=== PATIENT | male | born 1945 | race Caucasian/White ===

== ENCOUNTER 2017-07-03 13:45 | Emergency (ER) | payer OTHER ==
[~2017-07-03] VITALS: Ht 170.2 cm; Wt 104.3 kg
[~2017-07-03 13:45] MED LIST: ASPIRIN325; CENTRUM SILVER1 EAC2; CHOLEST OFF PL450 MG; CO Q-10100 MG; FISH OIL 1,001000 M2 PO; GLUCOSAMINE HC500 MG; LISINOPRIL20 MG PO; NORCO 5-325 TA1 EACH PO; VITAMIN D3400 UNIT
[2017-07-03] MEDS ORDERED: TOPROL XL25 MG PO (13:54)
[2017-07-03 14:31] LABS: HEMATOCRIT 43.8 % (42.0-52.0); MCH 29.2 pg (26.0-34.0); MCHC 34.2 g/dL (28.0-37.0); MCV 85.3 fL (80.0-100.0); MPV 7.6 fl. (7.2-11.1); NUCLEATED RBCS 0 /100WBC; PLATELET COUNT* 182 thou/uL (150-400); RBC 5.14 mil/uL (4.50-6.00); RDW-CV 13.8 % (10.5-14.5); WBC 7.3 thou/uL (4.0-11.0)
[2017-07-03 14:47] LABS: ABSOLUTE BASOPHILS 0.2 thou/uL (0.0-0.2); ABSOLUTE LYMPHOCYTES 0.7 thou/uL (0.8-5.3); ABSOLUTE MONOCYTES 0.9 thou/uL (0.0-1.2); ABSOLUTE NEUTROPHILS 5.5 thou/uL (1.6-8.1); PLATELET ESTIMATE ADEQUATE
[2017-07-03 14:56] LABS: INFLUENZA B ANTIGEN None Detected (None Detect)
[2017-07-03] MEDS ORDERED: PROAIR HFA8.5 GM INH (14:58)
[2017-07-03] MEDS ORDERED: TESSALON PERLE100 MG PO (14:58)
[2017-07-03] MEDS ORDERED: IBUPROFEN 800800 M1 PO (14:58)
[2017-07-03] MEDS ORDERED: ACETAMINOPHEN-1 EAC1 PO (14:58)
[2017-07-03] MEDS ORDERED: PROMETHAZINE V473 ML PO (14:58)
[2017-07-03 15:02] LABS: ANION GAP 10 mmol/L (7-16); BUN 22 mg/dL (7-18); CALCIUM 8.6 mg/dL (8.5-10.1); CHLORIDE 100 mmol/L (98-107); CO2 26 mmol/L (21-32); CREATININE 1.4 mg/dL (0.6-1.3); GLUCOSE 130 mg/dL (70-99); POTASSIUM 3.7 mmol/L (3.5-5.1); SODIUM 136 mmol/L (136-145)
[2017-07-03 15:09] LABS: ALBUMIN 3.7 g/dL (3.4-5.0); ALKALINE PHOSPHATASE 58 U/L (46-116); LIPASE 151 U/L (73-393); SGOT 18 U/L (15-37); SGPT 29 U/L (30-65); TOTAL BILIRUBIN 0.4 mg/dL (<0.1-1.0); TROPONIN-I LEVEL <0.06 ng/mL (<0.06)
[2017-07-03 15:30] VITALS: BP 139/70
--- NOTE | 2017-07-03 15:54 | EKG ---
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 GOMEZ : 1945 Requested By: Filomena Santana Order Number: [id number] MD: Anthony Rosa Measurements Intervals [place] Rate: 87 P: 53 LA: 135 QRS: 23 QRSD: 97 T: 20 QT: 355 QTc: 427 Interpretive Statements Sinus rhythm Low voltage, precordial leads Abnormal R-wave progression, late transition Baseline wander in lead(s) V3 Compared to ECG 10/10/2006 09:13:33 Low QRS voltage now present Sinus bradycardia no longer present Electronically Signed On 07-03-2017 15:53:56 [employer] SERVICES DESIGN[employer] by Anthony Rosa [email or web address] <ELECTRONICALLY SIGNED> By: Anthony Rosa MD, [facility] 07/03/17 1553 [id number] Anthony Rosa MD, [facility] /EPI
== END 2017-07-03 15:31 | disposition home or self-care (01) ==
LOC: M.ERS 13:45
PROVIDERS: Physician Assistant
DX: J09.X2 Influenza due to identified novel influenza A virus with other respiratory manifestations (principal); J20.9 Acute bronchitis, unspecified; I10 Essential (primary) hypertension; Z98.890 Other specified postprocedural states; Z88.5 Allergy status to narcotic agent